=== PATIENT | male | born 1960 | race Caucasian/White ===

== ENCOUNTER 2018-09-27 16:37 | Emergency (ER) | payer BC ==
[2018-09-27 17:03] VITALS: RESP 16; TEMP 98.6
[2018-09-27] MEDS ORDERED: MORPHINE SULFATE 4 MG/ML SYRINGE IM STA (17:34)
--- NOTE | 2018-09-27 17:51 | ED ---
General Adult HPI - General Chief complaint: Fall Stated complaint: Poss broken shoulder Time Seen by Provider: 09/27/18 17:16 Source: patient, RN notes reviewed, old records reviewed Mode of arrival: ambulatory Limitations: no limitations - History of Present Illness Initial comments: 58-year-old male presents status post fall. States he was standing between 2 and 3 feet on a ladder, fell onto his right shoulder. There was head trauma and momentary loss consciousness. Patient's complaint is only of right shoulder pain. Denies headache. Denies vision changes. Denies focal numbness or weakness. He is not on any anticoagulation. No chronic medical problems. - Related Data Home Medications Medication Instructions Recorded Confirmed Lisinopril [Zestril] 5 mg PO W/SUPPER 09/27/18 09/27/18 metFORMIN HCL 500 mg PO W/SUPPER 09/27/18 09/27/18 Previous Rx's Medication Instructions Recorded HYDROcodone/APAP 5-325MG [[place] 1 tab PO Q6HR PRN #12 tab 09/27/18 5-325] Ibuprofen [Motrin] 600 mg PO Q8HR PRN #24 tab 09/27/18 Allergies Allergy/AdvReac Type Severity Reaction Status Date / Time sulfamethoxazole Allergy Nausea & Verified 09/27/18 18:49 [From Bactrim] Vomiting trimethoprim [From Bactrim] Allergy Nausea & Verified 09/27/18 18:49 Vomiting Review of Systems ROS Statement: Those systems with pertinent positive or pertinent negative responses have been documented in the HPI. ROS Other: All systems not noted in ROS Statement are negative. Past Medical History Past Medical History: Diabetes Mellitus, Hypertension Additional Past Medical History / Comment(s): BACK PAIN History of Any Multi-Drug Resistant Organisms: None Reported Past Surgical History: Orthopedic Surgery Past Psychological History: No Psychological Hx Reported Smoking Status: Current every day smoker Past Alcohol Use History: Occasional Past Drug Use History: None Reported, Marijuana General Exam Limitations: no limitations General appearance: alert, in no apparent distress Head exam: Present: atraumatic, normocephalic Eye exam: Present: normal appearance, PERRL, EOMI Neck exam: Present: normal inspection, other (C-collar in place). Absent: tenderness Respiratory exam: Present: normal lung sounds bilaterally, chest wall tenderness (Tenderness over right clavicle). Absent: respiratory distress, wheezes Cardiovascular Exam: Present: regular rate, normal rhythm GI/Abdominal exam: Present: soft. 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 Absent: tenderness, paraspinal tenderness, vertebral tenderness Neurological exam: Present: alert, oriented X3, CN II-XII intact. Absent: motor sensory deficit Psychiatric exam: Present: normal affect, normal mood Skin exam: Present: warm, dry, intact. Absent: cyanosis, diaphoretic Course Vital Signs 09/27/18 17:00 Temperature 98.6 F Pulse Rate 95 Respiratory 16 Rate Blood Pressure 164/81 O2 Sat by Pulse 97 Oximetry Medical Decision Making - Medical Decision Making 58-year-old male status post fall with right shoulder pain. She did have minor head injury with momentary LOC, head CT obtained, negative for intracranial hemorrhage or mass effect, CT cervical spine negative for fracture subluxation. Shoulder x-ray and chest x-ray are significant for mid clavicle fracture. There is no skin tenting on exam. Patient has normal sensation, normal strength in the right upper extremity, distal pulses 2+. He was placed in a sling, will be given pain control and follow-up with orthopedic surgery. Disposition Clinical Impression: Fall, Clavicle fracture Disposition: HOME SELF-CARE Condition: Good Instructions (If sedation given, give patient instructions): Clavicle Fracture (ED) Prescriptions: HYDROcodone/APAP 5-325MG [[place] 5-325] 1 tab PO Q6HR PRN #12 tab PRN Reason: Pain Ibuprofen [Motrin] 600 mg PO Q8HR PRN #24 tab PRN Reason: Pain Is patient prescribed a controlled substance at d/c from ED?: No Referrals: Fadi Ornelas MD [Primary Care Provider] - 1-2 days Lisandro Dale MD [Medical Doctor] - 1-2 days Time of Disposition: 19:27
--- NOTE | 2018-09-27 18:33 | CT ---
EXAMINATION TYPE: CT brain felicianoine wo con DATE OF EXAM: 09/27/2018 COMPARISON: None HISTORY: fall, pain CT DLP: 1741.5 mGycm Automated exposure control for dose reduction was used. TECHNIQUE: CT scan of the head and cervical spine are performed without contrast. FINDINGS: There is no acute intracranial hemorrhage, mass effect, or midline shift identified. The ventricles and sulci are within normal limits in size. The globes are intact and the visualized sin uses are clear. Cervical spine is visualized in its entirety from C1 through upper thoracic levels and demonstrates s atisfactory alignment without evidence of acute fracture or dislocation. Prevertebral soft tissue ap pears within normal limits. Mild and moderate multilevel cervical spondylosis changes noted. The C1-C 2 articulation is unremarkable. IMPRESSION: 1. CERVICAL SPINE CT: THERE IS NO ACUTE FRACTURE OR DISLOCATION EVIDENT IN THE CERVICAL SPINE. 2. CT: NO ACUTE INTRACRANIAL HEMORRHAGE, MASS EFFECT, OR MIDLINE SHIFT IS SEEN. INCIDENTAL: Comminuted right midclavicular fracture noted, with [id number] override.
--- NOTE | 2018-09-27 19:09 | XR ---
EXAMINATION: XR chest 2V DATE AND TIME: 09/27/2018 6:25 PM CLINICAL INDICATION: PHH; Pain TECHNIQUE: Departmental protocol COMPARISON: 10/03/2012 FINDINGS: The overlying soft tissues are prominent. No definite acute pulmonary process. The pleural spaces are negative. The cardiac silhouette is borderline enlarged. The remainder of the mediastinal silhouette is unremar kable. The skeletal structures are positive for midclavicular fracture with 2 shaft width override. The ster noclavicular joint and acromioclavicular joint appear congruent. The soft tissues are negative for acute findings. IMPRESSION: Midclavicular fracture. No other findings.
--- NOTE | 2018-09-27 19:10 | XR ---
PROCEDURE: XR shoulder complete RT - 3V DATE AND TIME: 09/27/2018 6:26 PM CLINICAL INDICATION: PHH; Pain TECHNIQUE: Department protocol COMPARISON: None FINDINGS: There is a midclavicular fracture with 2 shaft width override. The acromioclavicular joint, sternoclavicular joint, and glenohumeral joint are congruent. No other fractures. IMPRESSION: RIGHT CLAVICULAR FRACTURE.
[2018-09-27 19:46] VITALS: BP 160/78; PULSE 92
== END 2018-09-27 19:44 | disposition home or self-care (01) ==
LOC: EC 16:37
DX: S42.001A Fracture of unspecified part of right clavicle, initial encounter for closed fracture (principal); S09.90XA Unspecified injury of head, initial encounter; E11.9 Type 2 diabetes mellitus without complications; I10 Essential (primary) hypertension; F17.200 Nicotine dependence, unspecified, uncomplicated; Z79.84 Long term (current) use of oral hypoglycemic drugs; Z79.899 Other long term (current) drug therapy; Z88.2 Allergy status to sulfonamides; W11.XXXA Fall on and from ladder, initial encounter; Y92.009 Unspecified place in unspecified non-institutional (private) residence as the place of occurrence of the external cause
CPT/HCPCS: 99284; 96372; 73030; 71046; 72125; 70450; J2270

== ENCOUNTER → 2020-07-30 | Outpatient (CLI) | payer BC | END | disposition home or self-care (01) | LOC: LABWHC1 11:15 | PROVIDERS: ATTEND Family Medicine | DX: R05 Cough (principal); R53.83 Other fatigue; R09.89 Other specified symptoms and signs involving the circulatory and respiratory systems; J02.9 Acute pharyngitis, unspecified | CPT/HCPCS: U0003; C9803 ==